=== PATIENT | male | born 1945 ===

== ENCOUNTER 2020-03-24 05:36 | Day surgery (SDC) | payer OTHER ==
[~2020-03-24 05:36] MED LIST: CENTRUM ADULTS1 EACH PO; ECOTRIN PO; NORVASC5 MG PO
== END 2020-03-24 14:40 | disposition home or self-care (01) ==
LOC: CIR.AMB 05:36 → EDBD 07:00 → ADM 07:00 → CIR.AMB 14:40
PROVIDERS: ATTEND Specialist
DX: K40.31 Unilateral inguinal hernia, with obstruction, without gangrene, recurrent (principal); Z20.828 Contact with and (suspected) exposure to other viral communicable diseases; D17.6 Benign lipomatous neoplasm of spermatic cord